=== PATIENT | female | born 1995 | race Caucasian/White ===

== ENCOUNTER 2024-10-07 10:30 | Outpatient (AMB) | payer OTHER, SELFPAY ==
--- NOTE | 2024-10-07 10:39 | A.OFFVIS_ITS ---
Vital Signs 10/07/24 10:41 Height 5 ft 7 in BMI Reason not done Patient refused/unable BP 144/67 H Blood Pressure Location Lt brachial Position Sitting Respiration 18 Pulse 79 Pulse Source Pulse Oximeter Pulse Oximetry (%) 96 Oxygen Delivery Method Room Air Intake Visit Reasons: Chronic low back pain Manager Of Community Relations Required: No Allergies codeine Allergy (Verified 10/07/24 10:40) Unknown HPI Comments Details: Savanah is very pleasant 28 years old female who presents in my office with complains on multiple pain generators including pain in the entire back pain in bilateral legs muscular pain on anterior surface of the legs muscular pain on anterior surface of the thighs and pain in bilateral feet, she also complains on headaches and pain in the left trapezius region. She reports that she is suffering from this pain since childhood. Because of her pain she can not sleep normally can not do activities of daily living can not take care of herself can not function normally. Her pain is mostly axial and is not radiating in bilateral lower extremities. The pain in the lower extremities is completely different pain. She reports that standing aggravate her pain in the back. Flexing back backwards aggravate her pain as well. In fact she states today that she can not lean backwards because of severe pain in the back. Weather changes and motions aggravate her pain. She tried multiple medications and they were not effective for her pain control. In terms of tissue damage he reports her pain as pulsing, throbbing, pounding, jumping, shooting, stabbing, lancinating, pinching, crushing, tugging, wrenching, tingling, stinging, dull, hurting, heavy, tiring, exhausting, sickening, suffocating, spreading, piercing, tight, squeezing, tearing sensation. She had multiple diagnostic studies on her lower back and on her head including MRI of the back and MRI of the head unfortunately that was done in [facility] and it does not available for me today. She recently completed physical therapy for her lower back in [facility] and physical therapy aggravated her pain. She feels hopeless and she states that nothing I tried has helped before. Her past medical history significant for dizziness depression anxiety and arthritis. There is no past surgical history, she denies smoking cigarettes denies drinking alcohol denies caffeinated beverages denies recreational drugs. Review of Systems Const All systems reviewed & are unremarkable except as noted in HPI and below ENT Reports Normal hearing present Neuro Reports Normal hearing present, Denies Abnormal speech present, Denies confusion and Denies Sensory deficit (Neuro) Psych Denies confusion Physical Exam Vital Signs: Last Vital Signs Pulse 79 10/07/24 10:41 Resp 18 10/07/24 10:41 BP 144/67 H 10/07/24 10:41 Pulse Ox 96 10/07/24 10:41 Oxygen Delivery Method Room Air 10/07/24 10:41 Const General: no acute distress; No confusion Nutritional Appearance: obese morbidly obese Orientation/consciousness: patient oriented x3 and No confusion Eyes General: appearance normal, both eyes and all related structures Pupils: Equal, round and reactive pupils present EOM: EOMs intact bilaterally Neck Neck: Yes full ROM Chest Chest palpation & inspection: normal inspection of the chest Resp Effort & Inspection: normal respiratory effort, able to speak in complete sentences, normal respiratory pattern, no audible wheezes and no cough Cardio Jugular venous distension: no JVD GI Inspection: Yes normal to inspection Back/Spine/Pelvis Other: Able to stand on bilateral tiptoes in bilateral feet without difficulty. Flexing forward alleviate her pain flexing backwards make her pain very severe. Loading test is positive bilaterally. Dashawn test is positive for the contralateral SI joint bilaterally. However neither Gaenslen test nor pelvic compression nor pelvic distraction tests are positive for sacroiliac joint pathology. SLR is negative bilaterally. Neuro General: patient oriented x3, gait normal and No confusion Cranial nerves: Yes CN's II-XII intact bilaterally, Yes Equal, round and reactive pupils present, Yes Normal hearing present and Yes Ability to bilaterally elevate shoulders present Speech: No Abnormal speech present Gait exam (Neuro): Normal gait present Motor exam (neuro): 5/5 motor strength present throughout Sensory Exam: No Sensory deficit (Neuro) Extrem General: No pedal edema Psych Speech and movement: Normal speech and movement present Affect: normal affect Attitude: cooperative Thought process: Normal thought process present Thought content: Normal thought content present Insight: Good insight present (Psych) Judgement: Good judgement present (Psych) Assessment & Plan Assessment & Plan (1) Spondylosis of lumbar region without myelopathy or radiculopathy: Code(s): M47.816 - Spondylosis without myelopathy or radiculopathy, lumbar region Category: Medical (2) Chronic pain syndrome: Code(s): G89.4 - Chronic pain syndrome Category: Medical Plan I will schedule this patient for bilateral L2, L3, L4 medial branch block. With good results of the medial branch block I may offer this patient either RFA of the medial branches as above or sprint PNS of the same location. Meanwhile the patient will sign a medical information release note and we will obtain medical records from [facility]. I also recommended patient that if she wants to bring us the MRI reports discs from [facility] we will be glad to obtain those and investigate what other pathologies may be involved in her pain generations. Coding Level of Care Code New Pt Level 3 (25740) Diagnoses Spondylosis of lumbar region without myelopathy or radiculopathy M47.816 Chronic pain syndrome G89.4
[2024-10-07 10:41] VITALS: BP 144/67; PULSE 79; RESP 18; O2SAT 96
== END 2024-10-07 11:06 | disposition home or self-care (01) ==
LOC: HO.PMC 10:31
PROVIDERS: PCP Internal Medicine; Referring Provider Internal Medicine; Visit Provider Anesthesiology
DX: M47.816 Spondylosis without myelopathy or radiculopathy, lumbar region (principal); G89.4 Chronic pain syndrome
CPT/HCPCS: 99203

== ENCOUNTER → 2024-10-07 10:30 | Outpatient (BNVA) | payer OTHER, SELFPAY | PROVIDERS: PCP Internal Medicine; Referring Provider Internal Medicine; Visit Provider Anesthesiology | DX: M47.816 Spondylosis without myelopathy or radiculopathy, lumbar region (principal); G89.4 Chronic pain syndrome | CPT/HCPCS: 99202 ==